=== PATIENT | female | born 1990 | race Caucasian/White ===

== ENCOUNTER 2017-11-07 15:31 | Emergency (ER) | payer MEDICAID ==
[~2017-11-07] VITALS: Ht 162.6 cm; Wt 81.6 kg
[2017-11-07 15:34] VITALS: Ht 162.6 cm; Wt 81.6 kg
[2017-11-07] MEDS ORDERED: ACETAMINOPHEN 325 MG TAB PO ONE (18:00)
[2017-11-07] MEDS ORDERED: LIDOCAINE 2% VISC 15 ML CUP PO ONE (18:00)
--- NOTE | 2017-11-07 18:00 | ERD ---
ER Documentation Chief Complaint Chief Complaint bib self,: left ear pain, sorethroat, and cough x 2dys +fevr, took ibu 1300 HPI This 27 YO femal with "sever" sore throat, pain with eating and drinking, fever and body aches, cough and chest congestion, left otalgia. x 2 days , took NyQuil and IBU, , pt reports back pain and dysuria ROS All systems reviewed and are negative except as per history of present illness. Medications Home Meds Reported Medications [None] No Conflict Check 11/23/11 Allergies Allergies: Coded Allergies: No Known Allergy (Unverified , 04/17/15) PMhx/Soc History of Surgery: Yes () Anesthesia Reaction: No Hx Neurological Disorder: No Hx Respiratory Disorders: No Hx Cardiac Disorders: No Hx Psychiatric Problems: No Hx Miscellaneous Medical Probl: Yes (PELVIC [place] ) Hx Alcohol Use: Yes Hx Substance Use: No Hx Tobacco Use: Yes Physical Exam Vitals Vital Signs Date Time Temp Pulse Resp B/P Pulse Ox O2 Delivery O2 Flow Rate FiO2 11/07/17 15:34 99.6 112 20 139/97 100 VSS, triage notes reviewed, temp rechecked 101.9 Physical Exam Const: Well-nourished well-appearing well-hydrated 27-year-old female, obvious discomfort, no acute distress ENT: Bilateral tympanic membranes obstructed with cerumen, nasal mucosa is edematous, turbinate edema +3, white mucus, excoriated septal wall noted bilaterally, maxillary sinus tenderness, pharynx presents erythemic, halitosis, tonsils +3 pitted w/ exudate uvula is midline without shift rises and falls with pronation Neck: Full range of motion..~ No meningismus. Palpable submandibular nodes Resp: Chest rises and falls symmetrically, clear to auscultation bilaterally no rales wheezes or rhonchi Cardio: Regular rate and rhythm, no murmurs Abd: Soft, non tender, non distended. Skin: No petechiae or rashes Back: No midline or flank tenderness Neur: Awake and alert Psych: Normal Mood and Affect Results 24 hrs Laboratory Tests Test 11/07/17 18:16 Urine Color BOBBY Urine Clarity CLOUDY Urine pH 6.0 Urine Specific [place] 1.031 Urine Ketones 1+mg/dL Urine Nitrite NEGATIVEmg/dL Urine Bilirubin 1+mg/dL Urine Urobilinogen 2+mg/dL Urine Leukocyte Esterase TRACELeu/ul Urine Microscopic RBC 2/HPF Urine Microscopic WBC 2/HPF Urine Squamous Epithelial Cells FEW/HPF Urine Bacteria FEW/HPF Urine Mucus FEW/HPF Urine Hemoglobin NEGATIVEmg/dL Urine Glucose NEGATIVEmg/dL Urine Total Protein 1+mg/dl Current Medications Medications (Trade) Dose Ordered Sig/Sofi Route PRN Reason Start Time Stop Time Status Last Admin Dose Admin Acetaminophen (Tylenol Tab) 650 mg ONCE ONCE PO 11/07/17 18:00 11/07/17 18:02 DC 11/07/17 18:13 Lidocaine (Xylocaine (Viscous)) 15 ml ONCE ONCE PO 11/07/17 18:00 11/07/17 18:02 DC 11/07/17 18:13 Urinalysis positive for evidence of trace leukocytosis, microscopic hematuria, no nitrates. 90s are consistent with the beginning of a urinary tract infection Procedures/MDM This 27-year-old female presents to emergency department for fever, body aches, backache, dysuria, severe sore throat, pain with swallowing even water. Patient reports symptoms started 2 days ago, states that she has treated with [id number] ibuprofen and Tylenol with little relief of symptoms. Patient is able to eat and drink but states the pain is not improving with treatment. 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 Emergency room course includes history and physical exam, exam findings consistent with a bacterial pharyngitis versus viral pharyngitis, possible urinary tract infection , I have no suspicion for a peritonsillar abscess, acute abdomen, or pyelonephritis. Patient receives Tylenol, rapid strep swab obtained by myself sent to lab for testing, and urinalysis, diagnostic evaluation is negative for strep pharyngitis, positive for urinary tract infection, plan to treat with Keflex 500 mg 1 tab p.o. 4 times daily 10 days. Ibuprofen 600 mg 1 tab p.o. every 6 hours as needed, and Chloraseptic throat spray. Increase fluids, increase rest, patient was instructed she was contagious until 24 hours post fever. Return to emergency department for worsening of symptoms, difficulty swallowing, not being able to swallow her own saliva, or change in voice. Patient is stable with no new complaints during ER course, clinically there is no current evidence to suggest meningitis, sepsis, acute abdomen, tonsillar abscess, uvulitis, parotiditis or any other emergent condition appearing to require further evaluation or hospitalization. I feel the patient is stable for discharge at this time. I have discussed results, examination findings, the treatment plan with the patient and family present prior to discharge. Indications for emergent reevaluation, side effects of medication were also discussed. All questions were answered. Patient verbalizes understanding and agrees with plan of care. Departure Diagnosis: Primary Impression: Pharyngitis with viral syndrome Additional Impression: UTI (urinary tract infection), uncomplicated Condition: Good Patient Instructions: Understanding Urinary Tract Infections (UTIs) Referrals: [facility] Additional Instructions: Thank you for for coming to [facility] for your care today. Please ask your nurse or provider if you have questions about your care today and do not leave until all your questions have been answered. Please use any medications given as directed and follow-up with your doctor (or the doctor you were referred to) in the next 2-3 days. If you do not have a primary care doctor you may follow up at the [facility] (listed below). You may also use motrin and tylenol as needed for fever and/or pain unless instructed otherwise by your provider or nurse. Indications for more urgent follow-up have been discussed, but you may return to the Emergency Department at ANY time for any worrisome or worsening symptoms. If you have abdominal pain, please know that no test or exam you received is perfect and you should follow up within 8 hours for continued pain. If you had any imaging studies today, such as an X-Ray or CT Scan, these studies will be reviewed later by a radiologist. You will be called if there are important findings that were not identified today, so make sure the contact information you provided at registration is correct. If you received any narcotic pain control medicine today, such as Vicodin, Morphine or Dilaudid, your coordination and judgment may be affected for a number of hours. Please do not drive or operate heavy machinery, and you may want someone to assist you at home. If you were given a prescription for narcotic medication, be aware that it is very addictive- use sparingly and only if necessary. BARBARA SOTO Nov 07, 2017 18:00
[2017-11-07 18:44] LABS: ADD UMIC YES; UR ASCORBIC ACID 40 mg/dL (NEGATIVE); UR BACTERIA FEW /HPF (NONE SEEN); UR BILIRUBIN (Dip) 1+ mg/dL (NEGATIVE); UR BLOOD (Dip) NEGATIVE (NEGATIVE); UR CLARITY CLOUDY (CLEAR); UR COLOR AMBER (YELLOW); UR GLUCOSE (Dip) NEGATIVE (NEGATIVE); UR KETONES (Dip) 1+ mg/dL (NEGATIVE); UR LEUKOCYTE ESTERASE (Dip) TRACE Leu/ul (NEGATIVE); UR MUCUS FEW /HPF (NONE SEEN); UR NITRITE (Dip) NEGATIVE (NEGATIVE); UR RBC 2 /HPF (0-5); UR SPECIFIC GRAVITY (Dip) 1.031 (1.003-1.030); UR SQUAMOUS EPITHELIAL CELL FEW /HPF (FEW); UR TOTAL PROTEIN (Dip) 1+ mg/dl (NEGATIVE); UR UROBILINOGEN (Dip) 2+ mg/dL (NEGATIVE)
[2017-11-07] MEDS ORDERED: IBUP-1542 PO (19:20)
[2017-11-07] MEDS ORDERED: CEPH-443 PO (19:20)
[2017-11-07] MEDS ORDERED: PHEN30SP8 MM (19:21)
== END 2017-11-07 20:06 | disposition home or self-care (01) ==
LOC: FTE 15:31
DX: B34.9 Viral infection, unspecified (principal); N39.0 Urinary tract infection, site not specified; Z85.53 Personal history of malignant neoplasm of renal pelvis
CPT/HCPCS: 81001; 87880; Z7502; Z7610; 99283

== ENCOUNTER 2018-02-26 10:24 | Emergency (ER) | END 2018-02-26 12:23 | disposition home or self-care (01) ==

== ENCOUNTER 2018-06-04 13:21 | Emergency (ER) | END 2018-06-04 16:45 | disposition left against medical advice (07) ==